=== PATIENT | female | born 1955 | race Caucasian/White ===

== ENCOUNTER 2024-07-30 04:23 | Outpatient (CLI) | payer MEDICARE, SELFPAY ==
[2024-07-30 14:05] LABS: Abs Immature Grans 0.02 10^3/uL (0.0-0.06); Absolute Basophil Count 0.09 10^3/uL (0.0-0.2); Absolute Eosinophil Count 0.16 10^3/uL (0.0-0.7); Absolute Lymphocyte Count 1.97 10^3/uL (1.2-3.4); Absolute Monocyte Count 0.48 10^3/uL (0.1-0.8); Absolute Neutrophil Count 4.07 10^3/uL (1.2-6.7); Basophils % 1.3 %; Eosinophils % 2.4 %; HCT 40.4 % (36.0-46.0); HGB 13.6 g/dL (11.2-15.7); Immature Grans % 0.3 %; MCH 29.2 pg (27.0-33.0); MCHC 33.7 % (32.0-36.0); MCV 87 fL (80-95); MPV 10.7 fL (8.0-11.0); Monocytes % 7.1 %; Neutrophils % 59.9 %; Platelet Count 224 10^3/uL (130-400); RBC 4.65 10^6/uL (3.93-5.22); RDW 12.8 % (11.7-14.6); RDW-SD 40.4 fL; WBC 6.79 10^3/uL (4.4-10.8)
== END 2024-07-30 04:24 | disposition home or self-care (01) ==
LOC: LBO 04:25
PROVIDERS: Visit Provider Obstetrics & Gynecology
DX: Z01.818 Encounter for other preprocedural examination (principal)
CPT/HCPCS: 36415; 86850; 86900; 86901; 85025

== ENCOUNTER 2024-08-01 07:30 | Day surgery (SDC) | payer MEDICARE, SELFPAY ==
[2024-08-01] VITALS (21 sets, daily range): BP systolic 132–148; BP diastolic 53–76; PULSE 55–76; RESP 11–18; TEMP 36.2–36.4; O2SAT 96–99; BMI 26.9
--- NOTE | 2024-08-01 08:01 | ANES.PREOP_ITS ---
General Info Date of Service Date Performed: 08/01/24 Height: 5 ft 4 in Weight: 71.2 kg Body Mass Index (BMI): 26.9 Surgical Procedure: Operation Date: 08/01/24 10:25 Proposed Procedure Side Surgeon p Dilation & Curettage with Hysteroscopy, Possible Myosure Tosha Hartley DO Actual Procedure Side Surgeon p Dilation & Curettage with Hysteroscopy, Possible Myosure Not Applicable Tosha Hartley DO Pre-Op Diagnosis Post-Op Diagnosis Thickened endometrium Meds Allergies and Home Medications Allergies Allergy/AdvReac Type Severity Reaction Status Date / Time Sulfa (Sulfonamide Allergy Intermediate Skin Rash Verified 08/01/24 07:55 Antibiotics) Home Medication ?Medication ?Instructions ?Recorded cholecalciferol (vitamin D3) 50 4,000 unit PO DAILY 07/05/24 mcg (2,000 unit) capsule hydrochlorothiazide 25 mg tablet 25 mg PO DAILY 07/05/24 losartan 25 mg tablet 25 mg PO DAILY 07/05/24 Current Visit Medications: Current Medications Generic Name Dose Route Start Last Admin Trade Name Freq PRN Reason Stop Dose Admin Ringer's Solution 1,000 mls @ 0 mls/hr 08/01/24 06:00 IV 08/01/24 23:59 INFUSION TERESO Ringer's Solution 1,000 mls @ 80 mls/hr 08/01/24 08:30 IV 08/31/24 08:29 INFUSION TERESO IV Miscellaneous Supplies 1 each 08/01/24 06:00 Iv Access IV 08/01/24 23:59 DIRECTED TERESO Sodium Chloride 0 ml 08/01/24 06:00 Normal Saline Flush 10 Ml Syr IV 08/01/24 23:59 PRN PRN Sodium Chloride 0 ml 08/01/24 06:00 Normal Saline 10 Ml Vial IJ 08/01/24 23:59 DIRECTED PRN Sterile Water 0 ml 08/01/24 06:00 Water,Injection,Sterile 10 Ml Vial IJ 08/01/24 23:59 DIRECTED PRN PFSH Active Problems Active Problems: Problem Status Onset Code Pelvic pressure in female Acute R10.2 Thickened endometrium Acute R93.89 Medical History Medical History HTN (hypertension) Surgical History Surgical History Hx of colonoscopy History of kidney surgery Pt. states he had a defect with her ureter corrected Hx of tubal ligation Hx of dilation and curettage Tobacco Smoking/Tobacco Use Status: Never Passive smoking exposure: No Alcohol Alcohol Intake: current Alcohol intake frequency: 0-2 drinks per day Substance Use Substance use: Never Substance use type: does not use Vital Signs and Lab Results Vital Signs Most Recent Vital Signs in EMR: Most Recent Vital Signs Temp Pulse Resp BP Pulse Ox 36.4 C L 76 18 139/76 98 08/01/24 07:51 08/01/24 07:51 08/01/24 07:51 08/01/24 07:51 08/01/24 07:51 Lab Results Blood Type / Crossmatch: 2 Antibody Screen NEGATIVE 07/30/24 Complete Blood Count: 2 White Blood Count 6.79 10^3/uL (4.4-10.8) 07/30/24 13:55 Red Blood Count 4.65 10^6/uL (3.93-5.22) 07/30/24 13:55 Hemoglobin 13.6 g/dL (11.2-15.7) 07/30/24 13:55 Hematocrit 40.4 % (36.0-46.0) 07/30/24 13:55 Platelet Count 224 10^3/uL (130-400) 07/30/24 13:55 Complete Metabolic Panel: 2 No Data to Display Liver Function Panel: 2 No Data to Display Coagulation Panel: 2 No Data to Display Cardiac Panel: 2 No Data to Display Arterial Blood Gas: 2 No Data to Display Venous Blood Gas: 2 No Data to Display Pancreas Panel: 2 No Data to Display Thyroid Panel: 2 No Data to Display Infectious Disease: 2 No Data to Display Blood Cultures: 2 No Data to Display Toxicology Panel: 2 No Data to Display Anesthesia Assessment and Plan Anesthesia History Personal History: No History of Anesthesia Complications Family History: No Family History of Anesthesia Complications Exercise Tolerance Exercise Tolerance: Metabolic Equivalents>4 Pertinent Negatives Pertinent Negatives: No Symptoms of GERD Cardiac & Pulmonary Exam Cardiac Exam: Normal S1/S2 Heart Sounds Pulmonary Exam: Clear Bilateral Breath Sounds Implantable Cardiac Device Does patient have a Pacemaker or an ICD?: No Airway Exam Known Difficult Airway: No Mallampati Class: 2 Mouth Opening: Normal (> 3cm) Thyromental Distance: Greater than 3 cm Neck Range of Motion: Full ROM Neck Circumference: Normal Teeth Condition: Normal Dentition Tooth Numberin 1. Tooth rotating and breaking other teeth per patient 2. Tooth rotating and breaking other teeth per patient ASA Classification ASA Score: ASA 2 Emergency Case?: No NPO Status NPO Status: NPO Clears >2 hours, Solids >8 hours Anesthesia Plan Resuscitation Status: Full Code Anesthesia Technique: General Anesthesia Airway Planned: LMA Monitors Used: Standard Monitors
[2024-08-01] MEDS: Lactated Ringers 1,000 ML 80 ML IV (08:03)
--- NOTE | 2024-08-01 09:06 | ENDOMET_PTH ---
PATIENT: Angie George LOC: [facility] U#:[id number] AGE/SX: 68/F ROOM: RE08/01/[address]: Tosha Hartley DO : 1955 BED: DIS: 08/01/2024 SPEC #: [id number] RECD: 08/01/24 12:46 STATUS: SOUT REQ #: [id number] LUIS FERNANDO: 08/01/24 09:[address]: Tosha Hartley DEPT: Surgical Specimen RECD BY: Valeria Fuller ENTERED: 08/01/24 12:47 SP TYPE: Endomet OTHR DR: Unknown,Unknown Tissues: 1 - ENDOMETRIUM BX/CURRETTE 2 - ENDOCERVICAL BX/CURRETTE 3 - ENDOMETRIUM BX/CURRETTE Procedures: GROSS AND MICRO LEVEL 4 Comments: [id number]
--- NOTE | 2024-08-01 09:25 | ROE_ITS ---
Operative Note Operative Note PRE-OP DIAGNOSIS: Thickened endometrium, postmenopausal bleeding Same with endometrial polyp PROCEDURE: Hysteroscopy, dilation and curettage, MyoSure removal of endometrial polyp SURGEON: Tosha Hartley ANESTHESIA TYPE: General LMA/ETT Refer to Anesthesia Record ESTIMATED BLOOD LOSS: 5 PATHOLOGY: other (1. Endocervical curettage 2. Endometrial curettage 3. Endometrial polyp) COMPLICATIONS: None Patient was transported to: PACU Patient's condition: stable Indications: Postmenopausal bleeding, thickened endometrium Findings: Smooth regular endocervix and endometrium with the exception of a fundal, approximately 3 to 4 mm endometrial polyp, removed. Procedure Description: After full informed consent was obtained, patient was taken the operating suite with IV running. She is placed in the supine position and general anesthesia administered. She was then placed in the modified dorsolithotomy position and prepped and draped in the usual sterile fashion. A timeout was held. She received pneumatic compression stockings for DVT prophylaxis and no antibiotic prophylaxis was necessary. At this point a exam under anesthesia was performed her uterus is midline and mobile. Speculum was inserted into the vaginal vault and single-tooth tenaculum used to grasp the anterior lip of the cervix. Cervical os dilated in a systematic fashion to accommodate a 4 mm hysteroscope. With instillation of normal saline, the endocervical and endometrial canals were visualized. These appeared smooth and regular with the exception of a pedunculated, 3 to 4 mm endometrial polyp. The MyoSure device was then inserted through the hysteroscope channel and the polyp was removed with use of the Kenneth Sure device. The base was hemostatic. At this point the hysteroscope portion of the procedure was terminated with a total fluid deficit of 30 mL of normal saline. Endocervical curettage was then performed followed by endometrial curettage, both for scant tissue. Single-tooth tenaculum was removed and puncture sites were hemostatic. Speculum was removed and the patient was returned to the dorsal supine position. She woke from anesthesia without difficulty and was transported to the postanesthesia care unit in stable condition. Complications: none apparent EBL: 5 mL Fluids: Crystalloid per anesthesia with 30 mL of normal saline deficit at hysteroscope Pathology: 1. Endocervical curetting 2. Endometrial curetting 3. Endometrial polyp Findings: As above. Date of Procedure: 08/01/24
--- NOTE | 2024-08-01 10:40 | W.ANESPOSTOP ---
Postoperative Evaluation Date, Time and Location Date Performed: 08/01/24 Time Performed: 10:18 Patient Location: Day Surgery Unit Vital Signs Most Recent Imported Vital Signs: Most Recent Vital Signs Temp Pulse Resp BP Pulse Ox 36.2 C L 58 L 16 139/75 99 08/01/24 10:33 08/01/24 10:33 08/01/24 10:33 08/01/24 10:33 08/01/24 10:33 Pain Score Most Recent Pain Score: Most Recent Pain Score Pain Level 3 08/01/24 10:33 Assessment Mental Status: Awake (Alert & Oriented to Patient Baseline) Airway and Respiratory Function: Patent airway with normal (patient baseline) respiratory exam Cardiovascular Function: Hemodynamically Stable Hydration Status: Adequately Hydrated Nausea & Vomiting: No Nausea or Vomiting Pain: Pt. Denies Any Pain Peripheral Nerve Block: Patient did not receive a nerve block Postoperative Comments:: Discussed LMA attempt x2 and sore throat. Patient and spouse educated that will take about 24-48 hours to resolve.
== END 2024-08-01 11:26 | disposition home or self-care (01) ==
PROVIDERS: Visit Provider Obstetrics & Gynecology
PROC: 0UDB8ZZ Extraction of Endometrium, Via Natural or Artificial Opening Endoscopic (ICD-10-PCS; CPT 58558; principal; 2024-08-01 10:15)
DX: N95.0 Postmenopausal bleeding (principal); N84.0 Polyp of corpus uteri; I10 Essential (primary) hypertension
CPT/HCPCS: 58558; 88305; J0131; J1100; J1885; J2250; J2405; J2704; J3010